=== PATIENT | female | born 1955 | race Native Hawaiian/Other Pacific Islander ===

== ENCOUNTER 2016-12-03 13:57 | Emergency (ER) | payer OTHER ==
[~2016-12-03] VITALS: Ht 167.6 cm; Wt 106.6 kg
[2016-12-03 13:10] VITALS: TEMP 98.6
[2016-12-03 14:52] LABS: PLATELET COUNT 340 K/uL (152-353)
[2016-12-03 15:00] LABS: POTASSIUM 3.2 mmol/L (3.6-5.2); SODIUM 137 mmol/L (136-145)
[2016-12-03 16:10] VITALS: BP 177/92
== END 2016-12-03 16:25 | disposition home or self-care (01) ==
LOC: ED 13:57
DX: M50.31 Other cervical disc degeneration, high cervical region (principal); M50.320 Other cervical disc degeneration, mid-cervical region, unspecified level; E87.6 Hypokalemia
CPT/HCPCS: 80053; 82550; 83735; 84484; 85027; 86318; 93005; 99284